=== PATIENT | male | born 1970 | race Caucasian/White ===

== ENCOUNTER 2019-02-12 14:32 | Inpatient (IN) ==
[2019-02-12] MEDS ORDERED: Nitroglycerin 0.4 MG TAB.SUBL SL ONE (14:54)
[2019-02-12] MEDS: Nitroglycerin 0.4 MG TAB.SUBL SL SCH ×3 (14:55→15:06)
[2019-02-12] MEDS ORDERED: 0.9 % Sodium Chloride 1,000 ML IVC ONE (15:01)
[2019-02-12] MEDS ORDERED: Aspirin 81 MG TAB.CHEW PO STA (15:01)
[2019-02-12] MEDS ORDERED: *HR* Ticagrelor 90 MG TABLET ONE ×2 (15:08→15:19)
[2019-02-12] MEDS ORDERED: *HR* Heparin 5,000 UNIT/ML VIAL ONE (15:08)
[2019-02-12] MEDS ORDERED: *HR* FentaNYL (PF) 100 MCG/2 ML VIAL IVP ONE (15:14)
[2019-02-12] MEDS ORDERED: *HR* Heparin 5,000 UNIT/ML VIAL IVP PRN ×3 (15:15→16:34)
[2019-02-12] MEDS ORDERED: *HR* Ticagrelor 90 MG TABLET PO ONE (15:15)
[2019-02-12] MEDS ORDERED: *HR* Heparin 5,000 UNIT/ML VIAL IVP ONE (15:15)
[2019-02-12] MEDS ORDERED: Heparin 25,000 UNIT/250 ML D5W 25,000 UNIT/250 ML IV.SOLN IVC SCH (15:15)
[2019-02-12 15:25] LABS: Basophils # 0.1 K/mcL (0.0-0.2); Basophils % 0.7 %; Eosinophils # 0.3 K/mcL (0.0-0.6); Eosinophils % 2.7 %; Hematocrit 40.2 % (37.5-50.1); Hemoglobin 13.4 g/dL (12.9-16.9); Immature Granulocytes % 0.7 % (0-4); Lymphocytes # 3.3 K/mcL (0.6-4.6); Lymphocytes % 33.6 %; Mean Corpuscular HGB Conc 33.3 g/dL (31.6-35.5); Mean Corpuscular Hemoglobin 25.8 pg (28.0-33.3); Mean Corpuscular Volume 77.5 fL (83.0-100.0); Mean Platelet Volume 10.4 fL (9.4-12.4); Monocytes # 1.1 K/mcL (0.0-1.3); Monocytes % 11.7 %; Platelet Count 349 K/mcL (140-400); Red Blood Count 5.19 M/mcL (4.19-5.50); Red Cell Distribution Width 14.1 % (11.5-14.5); Segmented Neutrophils % 50.6 %; White Blood Count 9.8 K/mcL (4.3-11.1)
[2019-02-12] MEDS ORDERED: Verapamil 5 MG/2 ML VIAL ONE (15:30)
[2019-02-12] MEDS ORDERED: 0.9 % Sodium Chloride 1,000 ML ONE ×2 (15:30→15:53)
[2019-02-12] MEDS ORDERED: *HR* Heparin 10,000 UNIT/10 ML VIAL ONE (15:30)
[2019-02-12] MEDS ORDERED: Heparin 1,000 UNITS/500 mL 500 ML ONE (15:30)
[2019-02-12] MEDS ORDERED: ISOVUE-370 200 ML INFUS..BTL ONE ×2 (15:31→16:15)
[2019-02-12] MEDS ORDERED: Nitroglycerin 1,000 MCG/10 ML VIAL IV ONE (15:31)
[2019-02-12] MEDS ORDERED: *HR* Midazolam HCl 2 MG/2 ML VIAL ONE ×2 (15:36→16:00)
[2019-02-12] MEDS ORDERED: *HR* FentaNYL (PF) 100 MCG/2 ML VIAL ONE (15:36)
[2019-02-12] MEDS ORDERED: Tirofiban 12.5 MG/250ML 12.5 MG/250 ML BAG ONE (15:36)
[2019-02-12] MEDS ORDERED: Ondansetron 4 MG/2 ML VIAL IVP PRN (15:45)
[2019-02-12 15:50] LABS: Troponin I < 0.03 ng/mL (< 0.04)
[2019-02-12 15:54] LABS: Heparin anti-factor XA UFH 0.02 IU/mL (0.30-0.70)
[2019-02-12 15:54] LABS: Hematocrit 36.9 % (37.5-50.1); Hemoglobin 12.4 g/dL (12.9-16.9); Mean Corpuscular HGB Conc 33.6 g/dL (31.6-35.5); Mean Corpuscular Hemoglobin 25.9 pg (28.0-33.3); Mean Corpuscular Volume 77.2 fL (83.0-100.0); Mean Platelet Volume 9.8 fL (9.4-12.4); Platelet Count 324 K/mcL (140-400); Red Blood Count 4.78 M/mcL (4.19-5.50); Red Cell Distribution Width 13.9 % (11.5-14.5); White Blood Count 9.1 K/mcL (4.3-11.1)
[2019-02-12 15:55] LABS: Prothrombin Time 11.5 Seconds (9.4-12.1)
[2019-02-12 15:56] LABS: BUN/Creatinine Ratio 13 (6-26); Blood Urea Nitrogen 12 mg/dL (6-20); Calcium 9.5 mg/dL (8.6-10.3); Carbon Dioxide 24 mEq/L (23-29); Chloride 103 mEq/L (98-107); Glucose 102 mg/dL (70-105); Osmolality,Calculated 284 (280-300); Potassium 3.3 mEq/L (3.5-5.1); Sodium 137 mEq/L (136-145); eGFR For African Americans > 60 (> 60); eGFR For Non-African Americans > 60 (> 60)
[2019-02-12] MEDS ORDERED: Ondansetron 4 MG/2 ML VIAL ONE (15:59)
[2019-02-12] MEDS ORDERED: Acetaminophen 325 MG TABLET PO PRN (16:33)
[2019-02-12] MEDS ORDERED: Tirofiban 12.5 MG/250ML 12.5 MG/250 ML BAG IVC SCH (16:45)
[2019-02-12] MEDS: *HR* HYDROcodone/Acet 5/325 mg TABLET PO PRN ×2 (17:26→23:46)
[2019-02-12 17:36] LABS: Hematocrit 33.9 % (37.5-50.1); Hemoglobin 11.2 g/dL (12.9-16.9); Mean Corpuscular Hemoglobin 25.5 pg (28.0-33.3); Mean Corpuscular Volume 77.2 fL (83.0-100.0); Mean Platelet Volume 10.3 fL (9.4-12.4); Platelet Count 278 K/mcL (140-400); Red Blood Count 4.39 M/mcL (4.19-5.50); Red Cell Distribution Width 14.1 % (11.5-14.5); White Blood Count 12.7 K/mcL (4.3-11.1)
[2019-02-12 17:48] LABS: Heparin anti-factor XA UFH 0.4 IU/mL (0.30-0.70)
[2019-02-12 17:49] LABS: INR 1.1; Prothrombin Time 12.9 Seconds (9.4-12.1)
[2019-02-12] MEDS ORDERED: Morphine Sulfate 2 MG/ML SYRINGE IVP PRN (19:58)
[2019-02-12] MEDS ORDERED: Nitroprusside 50 MG in D5% in Water 250 ML IVC SCH (20:00)
[2019-02-12] MEDS: Heparin 25,000 UNIT/250 ML D5W 25,000 UNIT/250 ML IV.SOLN IVC SCH (20:11)
[2019-02-12] MEDS ORDERED: *HR* Ticagrelor 90 MG TABLET PO SCH ×2 (21:00)
[2019-02-12] MEDS ORDERED: 0.9 % Sodium Chloride 500 ML ONE (21:23)
[2019-02-12] MEDS ORDERED: Nitroglycerin 25 MG/250 ML INFUS..BTL IVC SCH (23:00)
[2019-02-13] MEDS: *HR* HYDROcodone/Acet 5/325 mg TABLET PO PRN ×5 (03:29→21:47)
[2019-02-13] MEDS: *HR* Heparin 5,000 UNIT/ML VIAL IVP PRN ×2 (03:30→16:47)
[2019-02-13] MEDS: Aspirin 81 MG TAB.CHEW PO SCH (07:47)
[2019-02-13] MEDS: *HR* Ticagrelor 90 MG TABLET PO SCH ×2 (07:47→21:47)
[2019-02-13] MEDS: *HR* Promethazine 25 MG/ML VIAL IVP PRN (09:40)
[2019-02-13] MEDS: Isosorbide MONOnitrate (24 HR) 30 MG TAB.ER.24H PO SCH (16:14)
[2019-02-13 16:31] LABS: Basophils % 0.2 %; Eosinophils # 0.1 K/mcL (0.0-0.6); Eosinophils % 0.8 %; Hematocrit 34.1 % (37.5-50.1); Hemoglobin 11.2 g/dL (12.9-16.9); Immature Granulocytes % 0.5 % (0-4); Lymphocytes # 1.2 K/mcL (0.6-4.6); Lymphocytes % 12.7 %; Mean Corpuscular HGB Conc 32.8 g/dL (31.6-35.5); Mean Corpuscular Hemoglobin 25.9 pg (28.0-33.3); Mean Corpuscular Volume 78.8 fL (83.0-100.0); Mean Platelet Volume 10.2 fL (9.4-12.4); Monocytes # 0.9 K/mcL (0.0-1.3); Monocytes % 9.8 %; Neutrophils # 7.2 K/mcL (1.6-8.9); Platelet Count 238 K/mcL (140-400); Red Blood Count 4.33 M/mcL (4.19-5.50); Red Cell Distribution Width 14.2 % (11.5-14.5); White Blood Count 9.5 K/mcL (4.3-11.1)
[2019-02-13] MEDS: Heparin 25,000 UNIT/250 ML D5W 25,000 UNIT/250 ML IV.SOLN IVC SCH (16:49)
[2019-02-13 16:53] LABS: BUN/Creatinine Ratio 10 (6-26); Blood Urea Nitrogen 8 mg/dL (6-20); Calcium 8.8 mg/dL (8.6-10.3); Carbon Dioxide 24 mEq/L (23-29); Chloride 106 mEq/L (98-107); Glucose 105 mg/dL (70-105); Osmolality,Calculated 283 (280-300); Potassium 3.9 mEq/L (3.5-5.1); Sodium 137 mEq/L (136-145); eGFR For African Americans > 60 (> 60); eGFR For Non-African Americans > 60 (> 60)
[2019-02-14] MEDS: *HR* Promethazine 25 MG/ML VIAL IVP PRN ×3 (04:14→21:16)
[2019-02-14 05:23] LABS: Basophils % 0.4 %; Eosinophils # 0.1 K/mcL (0.0-0.6); Eosinophils % 1.4 %; Immature Granulocytes % 0.6 % (0-4); Lymphocytes # 1.5 K/mcL (0.6-4.6); Lymphocytes % 15.9 %; Mean Corpuscular HGB Conc 32.4 g/dL (31.6-35.5); Mean Corpuscular Hemoglobin 25.2 pg (28.0-33.3); Mean Corpuscular Volume 77.8 fL (83.0-100.0); Mean Platelet Volume 9.7 fL (9.4-12.4); Neutrophils # 6.7 K/mcL (1.6-8.9); Platelet Count 264 K/mcL (140-400); Red Blood Count 4.37 M/mcL (4.19-5.50); Red Cell Distribution Width 14.2 % (11.5-14.5); Segmented Neutrophils % 70.7 %; White Blood Count 9.4 K/mcL (4.3-11.1)
[2019-02-14 05:42] LABS: BUN/Creatinine Ratio 11 (6-26); Blood Urea Nitrogen 10 mg/dL (6-20); Carbon Dioxide 24 mEq/L (23-29); Chloride 104 mEq/L (98-107); Glucose 104 mg/dL (70-105); Osmolality,Calculated 283 (280-300); Potassium 3.7 mEq/L (3.5-5.1); Sodium 137 mEq/L (136-145); eGFR For African Americans > 60 (> 60); eGFR For Non-African Americans > 60 (> 60)
[2019-02-14] MEDS: *HR* HYDROcodone/Acet 5/325 mg TABLET PO PRN ×3 (07:00→21:08)
[2019-02-14] MEDS: Isosorbide MONOnitrate (24 HR) 30 MG TAB.ER.24H PO SCH (08:22)
[2019-02-14] MEDS: Aspirin 81 MG TAB.CHEW PO SCH (08:22)
[2019-02-14] MEDS: *HR* Ticagrelor 90 MG TABLET PO SCH ×2 (08:22→21:09)
[2019-02-14] MEDS ORDERED: Heparin 25,000 UNIT/250 ML D5W 25,000 UNIT/250 ML IV.SOLN IVC SCH (09:43)
[2019-02-14] MEDS ORDERED: Ondansetron 4 MG/2 ML VIAL IVP PRN (09:43)
[2019-02-14] MEDS ORDERED: *HR* Heparin 5,000 UNIT/ML VIAL IVP PRN ×2 (09:43)
[2019-02-14] MEDS ORDERED: Morphine Sulfate 2 MG/ML SYRINGE IVP PRN (09:43)
[2019-02-14] MEDS: Acetaminophen 325 MG TABLET PO PRN (11:06)
[2019-02-15] MEDS: *HR* Ticagrelor 90 MG TABLET PO SCH (08:05)
[2019-02-15] MEDS: Acetaminophen 325 MG TABLET PO PRN (08:07)
[2019-02-15 08:27] VITALS: BP 129/87
[2019-02-15] MEDS ORDERED: Aspirin 81 MG TAB.CHEW PO SCH (09:00)
[2019-02-15] MEDS ORDERED: Isosorbide MONOnitrate (24 HR) 30 MG TAB.ER.24H PO SCH (09:00)
== END 2019-02-15 10:25 | disposition home or self-care (01) | DRG 174 ==
LOC: EMEROOARM 14:32 → ICNU 16:12 → 2NENU 02-14 14:10
PROVIDERS: ADMIT Emergency Medicine; ATTEND Emergency Medicine

== ENCOUNTER 2021-03-03 18:56 | Observation (INO) ==
[2021-03-03] MEDS ORDERED: Aspirin 81 MG TAB.CHEW PO ONE (19:06)
[2021-03-03] MEDS ORDERED: Isovue-370 500 ML BOTTLE IVP ONE (19:17)
[2021-03-03 19:56] LABS: Basophils % 0.5 %; Eosinophils # 0.1 K/mcL (0.0-0.6); Eosinophils % 2.4 %; Hematocrit 36.8 % (37.5-50.1); Hemoglobin 12.1 g/dL (12.9-16.9); Immature Granulocytes % 0.5 % (0-4); Lymphocytes # 1.7 K/mcL (0.6-4.6); Lymphocytes % 28.5 %; Mean Corpuscular HGB Conc 32.9 g/dL (31.6-35.5); Mean Corpuscular Hemoglobin 26.4 pg (28.0-33.3); Mean Corpuscular Volume 80.3 fL (83.0-100.0); Mean Platelet Volume 10.1 fL (9.4-12.4); Monocytes # 0.6 K/mcL (0.0-1.3); Monocytes % 10.3 %; Neutrophils # 3.4 K/mcL (1.6-8.9); Platelet Count 180 K/mcL (140-400); Red Blood Count 4.58 M/mcL (4.19-5.50); Red Cell Distribution Width 14.6 % (11.5-14.5); Segmented Neutrophils % 57.8 %; White Blood Count 5.9 K/mcL (4.3-11.1)
[2021-03-03 20:16] LABS: BUN/Creatinine Ratio 13 (6-26); Blood Urea Nitrogen 11 mg/dL (6-20); Calcium 9.4 mg/dL (8.6-10.3); Carbon Dioxide 24 mEq/L (23-29); Chloride 106 mEq/L (98-107); Glucose 106 mg/dL (70-105); Osmolality,Calculated 290 (280-300); Potassium 3.7 mEq/L (3.5-5.1); Sodium 140 mEq/L (136-145); eGFR For African Americans > 60 (> 60); eGFR For Non-African Americans > 60 (> 60)
[2021-03-03 20:17] LABS: Troponin I < 0.03 ng/mL (< 0.04)
[2021-03-03 20:37] LABS: INR 1.2; Prothrombin Time 13.6 Seconds (9.4-12.1)
[2021-03-03 20:40] LABS: Activated Partial Thrombo Time 30.4 Seconds (26.0-36.0)
[2021-03-03] MEDS ORDERED: Naloxone 0.4 MG/ML INJ IVP PRN (23:33)
[2021-03-03] MEDS ORDERED: Melatonin 3 MG TABLET PO PRN (23:34)
[2021-03-03] MEDS ORDERED: Ondansetron 4 MG/2 ML VIAL IVP PRN (23:34)
[2021-03-04] MEDS ORDERED: Nitroglycerin 0.4 MG TAB.SUBL SL PRN (01:14)
[2021-03-04] MEDS ORDERED: Aspirin 81 MG TAB.CHEW PO SCH (09:00)
[2021-03-04] MEDS ORDERED: Ranolazine 500 MG TAB.ER.12H PO SCH (09:00)
[2021-03-04] MEDS ORDERED: Isosorbide MONOnitrate (24 HR) 30 MG TAB.ER.24H PO SCH (09:00)
[2021-03-04] MEDS ORDERED: lisinopriL 10 MG TABLET PO SCH (09:00)
[2021-03-04] MEDS ORDERED: Regadenoson 0.4 MG/5 ML SYRINGE IVP ONE (09:17)
[2021-03-04 14:56] VITALS: BP 120/76; PULSE 60; TEMP 97.7; O2SAT 93
== END 2021-03-04 15:46 | disposition home or self-care (01) ==
LOC: 3ANU 18:56 → EMEROOARM 18:56 → SUATTDRO 22:49 → 3ANU 03-04 00:05
PROVIDERS: ADMIT Family Medicine; ATTEND Internal Medicine